=== PATIENT | female | born 1940 | race African-American/Black ===

== ENCOUNTER 2017-05-23 08:43 | Inpatient (IN) ==
[2017-05-22 16:46] LABS: Basophils # 0.1 10*3/uL (0.0-0.2); Basophils % 0.5 % (0.0-0.8); Eosinophils # 0.1 10*3/uL (0.0-0.87); Eosinophils % 0.5 % (0.00-10.9); Hematocrit 35.5 VOL% (35.7-47.0); Hemoglobin 12.1 GM/DL (12.0-16.0); Immature Granulocytes % 0.4 %; Immature Granulocytes Absolute 0.04 #; Lymphocytes # 2.5 10*3/uL (1.4-4.0); Mean Corpuscular HGB Conc 34.1 GM/DL (32-36); Mean Corpuscular Hemoglobin 29 PG (27-34); Mean Corpuscular Volume 84.7 FL (87-102); Mean Platelet Volume 10.1 FL (9.6-12.0); Monocytes # 0.9 10*3/uL (0.11-0.8); Monocytes % 8.7 % (1.7-12.7); Neutrophils # 6.6 10*3/uL (1.4-7.4); Neutrophils % 64.9 % (38.7-73.9); Platelet Count 326 T/CUMM (130-400); Red Blood Count 4.19 MC/CUMM (3.8-5.5); Red Cell Distribution Width 14.6 % (9.3-17.3); White Blood Count 10.1 T/CUMM (4-12)
[2017-05-22 16:50] LABS: Apearance,Urine Slightly Hazy (Clear); Bacteria,Urine Occasional /HPF (Few); Bilirubin,Urine Negative (Negative); Blood, Urine Moderate mg/dL (Negative); Glucose,Urine (UA) Negative (Negative); Ketones,Urine Negative (Negative); Mucus,Urine Occasional /LPF (Occasional); Nitrite,Urine Negative (Negative); Protein,Urine 100 MG/DL; RBC,Urine 12 /HPF (0-4); Squamous Epithelial Cell,Urine Occasional /HPF (0-10); Urine Color Yellow (Yellow); Urine Specific Gravity 1.015 (1.001-1.035); Urine Urobilinogen < 2.0 EU/DL (0.2-1.0); WBC,Urine 17 /HPF (0-6)
[2017-05-22 17:16] LABS: Calcium 8.9 MG/DL (8.5-10.1); Osmolality,Calculated 285.3 MOS/KG (273-304)
[~2017-05-23 08:43] MED LIST: ceFAZolin 1,000 MG in SYRINGE 1 EACH IV ONE
[2017-05-23] MEDS ORDERED: ceFAZolin 1,000 MG VIAL ONE (09:53)
[2017-05-23] MEDS ORDERED: ROPIVACAINE 0.5% 30 ML VIAL ONE ×2 (10:46→10:49)
[2017-05-23] MEDS ORDERED: MIDAZOLAM 2 MG/2 ML VIAL ONE ×3 (10:51→13:40)
[2017-05-23] MEDS ORDERED: BACITRACIN OINT 0.9 GM PACK TOP ONE (11:33)
[2017-05-23] MEDS: LACTATED RINGERS 1,000 ML IV SCH ×4 (12:00→20:41)
[2017-05-23] MEDS ORDERED: GLUCAGON 1 MG VIAL IM PRN (13:24)
[2017-05-23] MEDS ORDERED: DEXTROSE 50% 25 GM/50 ML VIAL IV PRN (13:24)
[2017-05-23] MEDS ORDERED: ONDANSETRON 4 MG/2 ML VIAL IV PRN (13:25)
[2017-05-23] MEDS ORDERED: MORPHINE 2 MG/1 ML SYRINGE IV PRN ×2 (13:25)
[2017-05-23] MEDS ORDERED: MAGNESIUM HYDROXIDE SUSP 30 ML UDCUP PO PRN (13:25)
[2017-05-23] MEDS ORDERED: oxyCODONE IR 5 MG TABLET PO PRN ×2 (13:25)
[2017-05-23] MEDS ORDERED: KETOROLAC 15 MG/1 ML VIAL IV PRN (13:25)
[2017-05-23] MEDS ORDERED: hydrALAZINE 20 MG/1 ML VIAL ONE (13:26)
[2017-05-23] MEDS ORDERED: SEVOFLURANE 1 UNIT/15 MINUTE INH ONE (13:38)
[2017-05-23] MEDS ORDERED: LACTATED RINGERS 1,000 ML IV ONE (13:38)
[2017-05-23] MEDS ORDERED: PROPOFOL 200 MG/20 ML VIAL IV ONE (13:39)
[2017-05-23] MEDS ORDERED: fentaNYL 100 MCG/2 ML VIAL ONE (13:41)
[2017-05-23] MEDS ORDERED: ONDANSETRON 4 MG/2 ML VIAL ONE (13:42)
[2017-05-23] MEDS: INSULIN LISPRO 100 UNIT/ML SUBCUT SCH ×2 (17:20→20:10)
[2017-05-23] MEDS: ACETAMINOPHEN 500 MG TABLET PO SCH ×2 (17:21→22:38)
[2017-05-23] MEDS: metFORMIN 500 MG TABLET PO SCH (20:10)
[2017-05-23] MEDS: ceFAZolin 1,000 MG in SYRINGE 1 EACH IV SCH (20:34)
[2017-05-23] MEDS: METOPROLOL TARTRATE 25 MG TABLET PO SCH (20:37)
[2017-05-24] MEDS: ceFAZolin 1,000 MG in SYRINGE 1 EACH IV SCH (03:12)
[2017-05-24] MEDS: ACETAMINOPHEN 500 MG TABLET PO SCH ×2 (04:45→13:04)
[2017-05-24] MEDS ORDERED: LEVOTHYROXINE 75 MCG TABLET PO SCH (06:30)
[2017-05-24] MEDS ORDERED: amLODIPine 10 MG TABLET PO SCH (09:00)
[2017-05-24] MEDS ORDERED: sitaGLIPtin 100 MG TABLET PO SCH (09:00)
[2017-05-24] MEDS: metFORMIN 500 MG TABLET PO SCH (09:56)
[2017-05-24] MEDS: METOPROLOL TARTRATE 25 MG TABLET PO SCH (09:57)
[2017-05-24] MEDS: INSULIN LISPRO 100 UNIT/ML SUBCUT SCH ×2 (11:19→11:32)
[2017-05-24 16:01] VITALS: BP 142/86
== END 2017-05-24 16:35 | disposition home health service (06) | DRG 494 ==
LOC: N.OR 08:43 → N.SDSINP 08:48 → N.3E 14:11
PROVIDERS: ADMIT Orthopaedic Surgery; ATTEND Orthopaedic Surgery